=== PATIENT | male | born 1940 | race Two or more races ===

== ENCOUNTER 2025-01-25 07:07 | Day surgery (SDC) | payer MEDICARE, MEDICAID, SELFPAY ==
--- NOTE | 2025-01-24 13:32 | EKG_ITS ---
[facility] Test Date: 2025-01-24 Pat Name: CONNOR COMBS Department: Room: - Gender: Male Inside Sales Manager: ELVIRA : 1940 Requested By: Richa Robles Order Number: [id number] Reading MD: Richa Robles Measurements Intervals [place] Rate: 65 P: -88 MO: 158 QRS: 65 QRSD: 90 T: 61 QT: 342 QTc: 356 Interpretive Statements ELECTRONIC ATRIAL PACEMAKER NONSPECIFIC ST & T-WAVE ABNORMALITY ABNORMAL RHYTHM ECG No previous ECG available for comparison /store/S0/[id number]
[2025-01-24 15:12] LABS: Basophils % (Auto) 0 % (0-2.5); Eosinophils # (Auto) 0.1 Thou/mm3 (0.0-0.5); Eosinophils % (Auto) 1 % (0-10); Hematocrit 38.1 % (41.0-53.0); Hemoglobin 13.1 g/dL (13.5-16.0); Immature Granulocytes % (Auto) 0 % (0-0); Immature Granulocytes Auto 0.03 Thou/mm3 (0.00-0.00); Lymphocytes # (Auto) 1.7 Thou/mm3 (1.0-4.8); Lymphocytes % (Auto) 23 % (10-50); Mean Corpuscular HGB Conc 34.4 g/dl (31.0-37.0); Mean Corpuscular Hemoglobin 28.9 pg (25.0-35.0); Mean Corpuscular Volume 84 fL (80-100); Monocytes # (Auto) 0.6 Thou/mm3 (0.0-0.8); Monocytes % (Auto) 8 % (0-12); Neutrophils % (Auto) 68 % (37-80); Nucleated Red Blood Cell % 0 /100 WBC (0); Platelet Count 230 Thou/mm3 (140-440); RDW Standard Deviation 41.3 fL (35.1-43.9); Red Blood Count 4.54 Miln/mm3 (4.50-5.90); White Blood Count 7.3 Thou/mm3 (3.8-10.6)
[2025-01-24 15:16] LABS: Partial Thromboplastin Time 30.4 Seconds (22.0-36.0); Prothrombin Time 10.7 Seconds (9.0-12.2)
[2025-01-24 15:31] LABS: Anion Gap 12 (7-16); BUN/Creatinine Ratio 18 Ratio (12-20); Blood Urea Nitrogen 24 mg/dL (9-23); Calcium 9.9 mg/dL (8.3-10.6); Carbon Dioxide 22.4 mMol/L (20.0-31.0); Chloride 106 mMol/L (98-107); Creatinine (Component) 1.3 mg/dL (0.6-1.3); Glucose 101 mg/dL (74-106); Osmolality,Calculated 283 (275-295); Potassium 4.1 mMol/L (3.4-5.1); Sodium 140 mMol/L (136-145); eGFR 54 See Note
[2025-01-24 16:05] VITALS: BMI 23.4
[2025-01-25] VITALS (17 sets, daily range): BP systolic 149–189; BP diastolic 66–111; PULSE 64–69; RESP 12–19; TEMP 36.6–36.8; O2SAT 97–99
--- NOTE | 2025-01-25 14:19 | ESOP_ITS ---
RE: CONNOR COMBS : 1940 DATE OF OPERATION: 01/25/2025 PROCEDURE PERFORMED: 1. Selective catheterization of aortic arch and aortic arch angiogram. 2. Selective catheterization of right common artery, carotid and cerebral angiogram. 3. Selective catheterization of left carotid angiography, carotid and cerebral angiogram. 4. Left femoral angiogram followed by manual compression. DIAGNOSES: Severe symptomatic left internal carotid artery stenosis with transient ischemic attack. HISTORY AND INDICATIONS: The patient is an 84-year-old with history of hypertension, hypercholesterolemia, episodes of right-sided weakness and numbness and was found to have 90% stenosis in the left internal carotid artery. Carotid angiogram was recommended _ the patient is candidate for carotid intervention, stent placement versus surgery. DESCRIPTION OF PROCEDURE: The patient was brought to cardiac catheterization laboratory. He was given 2 mg Versed and 50 mcg fentanyl for sedation. Right femoral approach was taken. Right femoral artery was cannulated by ultrasound guidance, 5-Gambian sheath was introduced. A 5-Gambian pigtail catheter was advanced into the aortic arch. Aortic arch angiogram was performed. Subsequently, Ramsey 2, 5-Gambian catheter was used to cannulate the right common carotid artery, carotid, and cerebral angiogram performed. Multiple views were obtained. Ramsey 2 catheter was used to perform left carotid angiogram. Left carotid artery was performed. Left common carotid artery engaged with the catheter and left carotid and cerebral angiogram performed. The patient tolerated the procedure with no complications. Cardiac fluoroscopy was performed as well showed evidence of heavy calcification in the left main, LAD and circumflex arteries. Blood pressure was normal at 150/80. Aortic arch angiogram showed type A aortic arch. Innominate artery, common carotid artery, subclavian artery origins appear normal. Vertebral arteries appeared normal Right common carotid artery is normal. Right internal carotid artery shows mild plaque, no significant stenosis. Right anterior middle cerebral artery is normal. Left carotid artery, left common carotid artery is normal. Left internal carotid artery showed a 98% stenosis of the left internal carotid artery. Anterior middle cerebral artery showed no significant stenosis. SUMMARY OF FINDINGS: 1. A 95% to 98% stenosis of the left internal carotid artery. 2. Heavy calcification of the left main and LAD coronary arteries. RECOMMENDATIONS: The patient will continue medical management. Will possibly coronary angiogram after stress test and risk stratification before recommending carotid intervention. Most likely, the patient is at high risk for carotid endarterectomy because of his age and also underlying coronary artery disease, may require carotid stent placement. DT: 12:18:37 TT: 13:35:00 Ref: [id number] - TID: [id number] MTDD
== END 2025-01-25 14:35 | disposition home or self-care (01) ==
PROVIDERS: PCP Family Medicine; Referring Provider Internal Medicine Cardiovascular Disease; Visit Provider Internal Medicine Cardiovascular Disease
PROC: (CPT 75600; principal; 2025-01-25 08:45)
DX: I65.22 Occlusion and stenosis of left carotid artery (principal); E78.00 Pure hypercholesterolemia, unspecified; I10 Essential (primary) hypertension; Z01.810 Encounter for preprocedural cardiovascular examination
CPT/HCPCS: 36224; 36226; 93454; 36415; 80048; 85025; 85610; 85730; 93005; 99152; A4649; C1751; C1894; J0171; J0461; J1643; J2250; J2310; J2371; J3010; J3490; Q9967

== ENCOUNTER → 2025-02-02 | Outpatient (CLI) | payer MEDICARE, MEDICAID, SELFPAY ==
--- NOTE | 2025-02-02 | XR_ITS ---
Examination: CT brain head without contrast. 2-D sagittal coronal reconstructions Date and time of exam:February 02, 2025 1239 hours INDICATIONS: Diagnosis transient ischemic attack episodes 1 year, with blurred vision CTDI: vol (mGy):50.4 DLP: (mGycm):1036 Technique: Multiple CT axial sections of the brain have been obtained, 5 mm slice thickness. Contrast has not been administered. 2-D sagittal, coronal reconstructions have been obtained Low dose protocols were performed. One or more of the following dose reduction techniques were used; automated exposure control, adjustment of the mA and/or KV according to patient size, use of iterative reconstruction technique. Findings: No significant ventricular enlargement. 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 No mass effect or midline shift Basal cisterns are not remarkable. Fourth ventricle is midline. Cranial vault intact. Impression: Negative for acute hemorrhage, mass effect or midline shift Consider brain MRI follow-up, stroke protocol
== END | disposition home or self-care (01) ==
PROVIDERS: PCP Family Medicine; Referring Provider Internal Medicine Cardiovascular Disease; Visit Provider Internal Medicine Cardiovascular Disease
DX: G45.8 Other transient cerebral ischemic attacks and related syndromes (principal); I69.998 Other sequelae following unspecified cerebrovascular disease; R53.1 Weakness
CPT/HCPCS: 70450

== ENCOUNTER 2025-02-10 06:34 | Day surgery (SDC) | payer MEDICARE, MEDICAID, SELFPAY ==
--- NOTE | 2025-02-09 08:50 | EKG_ITS ---
[facility] Test Date: 2025-02-09 Pat Name: CONNOR COMBS Department: Room: - Gender: Male Network Associate: DIANE : 1940 Requested By: Richa Robles Order Number: [id number] Reading MD: Richa Robles Measurements Intervals [place] Rate: 65 P: 199 ID: [id number] QRS: 66 QRSD: 92 T: 60 QT: 366 QTc: 381 Interpretive Statements ELECTRONIC ATRIAL PACEMAKER ABNORMAL RHYTHM ECG Compared to ECG 01/24/2025 14:21:55 T-wave abnormality no longer present /store/S0/[id number]/ecg/[id number]
[2025-02-09 08:57] VITALS: BMI 23.7
[2025-02-09 11:55] LABS: Basophils % (Auto) 0 % (0-2.5); Eosinophils # (Auto) 0.1 Thou/mm3 (0.0-0.5); Eosinophils % (Auto) 1 % (0-10); Hematocrit 37.6 % (41.0-53.0); Hemoglobin 12.8 g/dL (13.5-16.0); Immature Granulocytes % (Auto) 0 % (0-0); Immature Granulocytes Auto 0.03 Thou/mm3 (0.00-0.00); Lymphocytes # (Auto) 1.6 Thou/mm3 (1.0-4.8); Lymphocytes % (Auto) 21 % (10-50); Mean Corpuscular Hemoglobin 29.1 pg (25.0-35.0); Mean Corpuscular Volume 86 fL (80-100); Monocytes # (Auto) 0.6 Thou/mm3 (0.0-0.8); Monocytes % (Auto) 8 % (0-12); Neutrophils # (Auto) 5.3 Thou/mm3 (1.8-7.7); Neutrophils % (Auto) 70 % (37-80); Nucleated Red Blood Cell % 0 /100 WBC (0); Platelet Count 223 Thou/mm3 (140-440); White Blood Count 7.6 Thou/mm3 (3.8-10.6)
[2025-02-09 12:03] LABS: Partial Thromboplastin Time 31.7 Seconds (22.0-36.0); Prothrombin Time 10.8 Seconds (9.0-12.2)
[2025-02-09 12:04] LABS: Anion Gap 8 (7-16); BUN/Creatinine Ratio 15 Ratio (12-20); Blood Urea Nitrogen 18 mg/dL (9-23); Calcium 9.2 mg/dL (8.3-10.6); Carbon Dioxide 22.6 mMol/L (20.0-31.0); Chloride 107 mMol/L (98-107); Creatinine (Component) 1.2 mg/dL (0.6-1.3); Estimated Creatinine Clearance 47.9 mL/min (>60); Glucose 96 mg/dL (74-106); Osmolality,Calculated 277 (275-295); Potassium 4.3 mMol/L (3.4-5.1); Sodium 138 mMol/L (136-145); eGFR 59 See Note
[2025-02-10] VITALS (14 sets, daily range): BP systolic 122–177; BP diastolic 65–83; PULSE 65–68; RESP 13–21; TEMP 36.3–36.8; O2SAT 96–99; BMI 23.6
--- NOTE | 2025-02-11 16:12 | ESOP_ITS ---
RE: CONNOR COMBS : 1940 Date of procedurez; February 10, 2025 PROCEDURES PERFORMED: 1. Diagnostic left heart cardiac catheterization, selective coronary angiogram, and left ventricular angiogram, CPT 72643. 2. PCI/PTCA stent placement of the distal left circumflex artery. Placement of a drug-eluting stent 2.25 x 12 Medtronic Danny drug-eluting stent, post dilated using a 2.5 mm NC balloon. Pre-procedure stenosis 99%, post procedure stenosis 0%. Pre-procedure RADHA flow is 1, post-procedure RADHA flow is 3. DIAGNOSES: Angina pectoris, 99% carotid stenosis, and coronary artery disease. HISTORY AND INDICATIONS: The patient is a 84-year-old male with a past medical history of hypertension and a history of pacemaker implantation with complete heart block and angina pectoris. He has been having TIA episodes and was found to have severe left internal carotid artery stenosis. Recommended to have carotid endarterectomy versus surgery. Preoperative workup shows evidence of significant coronary artery disease and abnormal stress test. Coronary angiogram was recommended to assess if patient is a candidate for interventional revascularization prior to proceeding with carotid endarterectomy versus stent placement based on the cardiac risk. PROCEDURE IN DETAIL: The patient was brought to the cardiac catheterization laboratory. He was given 2 mg of Versed and 100 mcg of fentanyl for sedation. Right radial approach was taken. Right radial artery was cannulated by micropuncture technique and a 6-Mosotho Glidesheath was introduced. Selective right and left coronary angiograms were performed using a TIG-4 diagnostic catheter. Left heart catheterization and left ventricular angiogram were performed using a 5- [place]oth[place] TIG4 diagnostic catheter. Subsequently, intervention was undertaken. Cardiac catheterization showed following findings: HEMODYNAMICS: Left ventricular pressure is 145/12 mmHg. Aortic pressure is 145/55 mmHg. No gradient across the aortic valve. Left ventricular angiogram showed normal left ventricular wall motion with an ejection fraction of 60%. FINDINGS: Coronary angiogram showed the following findings: Right coronary artery is small and codominant; views of only small posterior descending artery. Left shows no significant stenosis. Left coronary system: Left main coronary artery showed mild calcification. Left anterior descending artery showed mild atherosclerotic plaque with no significant stenosis. Left circumflex artery is large and codominant; PDA and PL branches and distal left circumflex artery showed evidence of 99% stenosis with RADHA 1 flow. Subsequently, there are two major branches. Obtuse marginal branch circumflex artery showed ratio of 50% to 60% stenosis. Following the diagnostic procedure, PCI was undertaken. The patient was given radial cocktail with 3000 units of heparin and nitroglycerin. An additional 3000 units of heparin was given. ACT was 280. Proceeded with PCI. The patient's aspirin loading dose was already given and Brilinta 180 mg loading dose was given for antiplatelet drug therapy. The left main coronary artery was cannulated with a 6-Mosotho Voda Left VL 3.5 guiding catheter and a 0.014 Runthrough guidewire was used to cross the lesion successfully. Free dilation was performed and showed that the wire was in a smaller PL branch. A Choice fighter pilot 50 guidewire was then used to cross the lesion and was successfully placed in the main branch in the PDA. The lesion was successfully dilated using a 2.0 x 12 mm Medtronic balloon catheter. Subsequently, 2.25 mm x 12 mm Danny Medtronic stent was deployed successfully with 12 atmospheres of pressure. Subsequently, a 2.5 x 8 mm noncompliant balloon was used to dilate the stent successfully with 12 atmospheres of pressure. Final angiogram showed a widely patent distal left circumflex segment with no residual stenosis 0% stenosis. RADHA flow was 3. SUMMARY OF FINDINGS: Single-vessel coronary artery disease with evidence of 99% stenosis in the distal circumflex artery and underwent successful PCI with stent placement. The patient received a drug-eluting stent, Medtronic [place] 2.25 x 12 mm stent, post dilated to 2.4 mm NC balloon with excellent results. Pre-procedure stenosis was 99%, post-procedure stenosis was 0%. Pre-procedure RADHA flow was 1, post-procedure RADHA flow was 3. COMPLICATIONS: None. RECOMMENDATIONS: Subsequently, TR band was applied. Hemostasis was achieved. The patient will be discharged home on aspirin and Brilinta 90 mg twice daily. Because the patient has underlying coronary artery disease with stent placement, he is high risk for carotid endarterectomy. Because of symptomatic stenosis of the left internal carotid artery, high risk for endarterectomy, suitable for stent placement. The patient is recommended carotid stent placement with an embolic protection device at a later date. DT: 13:19:45 TT: 15:16:00 Ref: [id number] - TID: [id number] [facility]
--- NOTE | 2025-02-11 16:24 | ESOP_ITS ---
RE: CONNOR COMBS : 1940 Date of the procedure February 10, 2025 PROCEDURES PERFORMED: 1. Diagnostic left heart cardiac catheterization, selective coronary angiogram, and left ventricular angiogram, CPT 25241. 2. PCI/PTCA stent placement of the distal left circumflex artery. Placement of a drug-eluting stent 2.25 x 12 Medtronic Mobile drug-eluting stent, post dilated using a 2.5 mm NC balloon. Pre-procedure stenosis 99%, post procedure stenosis 0%. Pre-procedure RADHA flow is 1, post-procedure RADHA flow is 3. DIAGNOSES: Angina pectoris, 99% carotid stenosis, and coronary artery disease. HISTORY AND INDICATIONS: The patient is a 84-year-old male with a past medical history of hypertension and a history of pacemaker implantation with complete heart block and angina pectoris. He has been having TIA episodes and was found to have severe left internal carotid artery stenosis. Recommended to have carotid endarterectomy versus surgery. Preoperative workup shows evidence of significant coronary artery disease and abnormal stress test. Coronary angiogram was recommended to assess if patient is a candidate for interventional revascularization prior to proceeding with carotid endarterectomy versus stent placement based on the cardiac risk. PROCEDURE IN DETAIL: The patient was brought to the cardiac catheterization laboratory. He was given 2 mg of Versed and 100 mcg of fentanyl for sedation. Right radial approach was taken. Right radial artery was cannulated by micropuncture technique and a 6-Swiss Glidesheath was introduced. Selective right and left coronary angiograms were performed using a TIG-4 diagnostic catheter. Left heart catheterization and left ventricular angiogram were performed using a 5- Swiss TIG4 diagnostic catheter. Subsequently, intervention was undertaken. Cardiac catheterization showed following findings: HEMODYNAMICS: Left ventricular pressure is 145/12 mmHg. Aortic pressure is 145/55 mmHg. No gradient across the aortic valve. Left ventricular angiogram showed normal left ventricular wall motion with an ejection fraction of 60%. FINDINGS: Coronary angiogram showed the following findings: Right coronary artery is small and codominant; views of only small posterior descending artery. Left shows no significant stenosis. Left coronary system: Left main coronary artery showed mild calcification. Left anterior descending artery showed mild atherosclerotic plaque with no significant stenosis. Left circumflex artery is large and codominant; _ PDA and PL branches and distal left circumflex artery showed evidence of 99% stenosis with RADHA 1 flow. Subsequently, there are two major branches. Obtuse marginal branch circumflex artery showed ratio of 50% to 60% stenosis. Following the diagnostic procedure, PCI was undertaken. The patient was given radial cocktail with 3000 units of heparin and nitroglycerin. An additional 3000 units of heparin was given. ACT was 280. Proceeded with PCI. The patient's aspirin loading dose was already given and Brilinta 180 mg loading dose was given for antiplatelet drug therapy. The left main coronary artery was cannulated with a 6-Swiss Voda Left VL 3.5 guiding catheter and a 0.014 Runthrough guidewire was used to cross the lesion successfully. Free dilation was performed and showed that the wire was in a smaller PL branch. A Choice elevator pilot 50 guidewire was then used to cross the lesion and was successfully placed in the main branch in the PDA. The lesion was successfully dilated using a 2.0 x 12 mm Medtronic balloon catheter. Subsequently, 2.25 mm x 12 mm Mobile Medtronic stent was deployed successfully with 12 atmospheres of pressure. Subsequently, a 2.5 x 8 mm noncompliant balloon was used to dilate the stent successfully with 12 atmospheres of pressure. Final angiogram showed a widely patent distal left circumflex segment with no residual stenosis 0% stenosis. RADHA flow was 3. SUMMARY OF FINDINGS: Single-vessel coronary artery disease with evidence of 99% stenosis in the distal circumflex artery and underwent successful PCI with stent placement. The patient received a drug-eluting stent, Medtronic Mobile 2.25 x 12 mm stent, post dilated to 2.4 mm NC balloon with excellent results. Pre-procedure stenosis was 99%, post-procedure stenosis was 0%. Pre-procedure RADHA flow was 1, post-procedure RADHA flow was 3. COMPLICATIONS: None. RECOMMENDATIONS: Subsequently, TR band was applied. Hemostasis was achieved. The patient will be discharged home on aspirin and Brilinta 90 mg twice daily. Because the patient has underlying coronary artery disease with stent placement, he is high risk for carotid endarterectomy. Because of symptomatic stenosis of the left internal carotid artery, high risk for endarterectomy, suitable for stent placement. The patient is recommended carotid stent placement with an embolic protection device at a later date. DT: 13:19:45 TT: 15:16:00 Ref: [id number] - TID: [id number] CC: ; ~ Dictated by:Richa Meza MD 02/11/25 1319 E-signed by: E-Signed by: E-Signed by: REPORT NO:[id number] [facility]
== END 2025-02-10 13:30 | disposition home or self-care (01) ==
PROVIDERS: PCP Family Medicine; Referring Provider Internal Medicine Cardiovascular Disease; Visit Provider Internal Medicine Cardiovascular Disease
PROC: (CPT 93458; principal; 2025-02-10 07:30)
DX: I25.118 Atherosclerotic heart disease of native coronary artery with other forms of angina pectoris (principal); I10 Essential (primary) hypertension; Z01.810 Encounter for preprocedural cardiovascular examination; Z95.0 Presence of cardiac pacemaker
CPT/HCPCS: 93458; C9600; 36415; 80048; 85025; 85347; 85610; 85730; 93005; 99152; 99153; A4649; C1725; C1769; C1874; C1887; C1894; J0153; J0171; J0282; J0461; J1643; J2250; J2310; J2371; J3010; J3490; J7050; Q9967; J2305